=== PATIENT | male | born 1985 | race Caucasian/White ===

== ENCOUNTER 2022-01-18 07:17 | Emergency (ER) | payer SELFPAY ==
[2022-01-18] MEDS ORDERED: FLONASE 0.05% N16 GM (08:53)
[2022-01-18] MEDS ORDERED: DELSYM30 MG/5 ML PO (08:53)
[2022-01-18] MEDS ORDERED: SUDAFED 60 MG T60 MG PO (08:53)
== END 2022-01-18 08:59 | disposition home or self-care (01) ==
LOC: ER1 07:17
DX: R05.9 Cough, unspecified (principal); H61.22 Impacted cerumen, left ear; I10 Essential (primary) hypertension; F17.210 Nicotine dependence, cigarettes, uncomplicated; Z88.0 Allergy status to penicillin; Z20.822 Contact with and (suspected) exposure to COVID-19
CPT/HCPCS: 0240U; 99283

== ENCOUNTER 2022-01-21 21:09 | Emergency (ER) | payer SELFPAY ==
[~2022-01-21 21:09] MED LIST: DELSYM30 MG/5 ML PO; FLONASE 0.05% N16 GM; SUDAFED 60 MG T60 MG PO
== END 2022-01-22 00:42 | disposition home or self-care (01) ==
LOC: ER1 21:09
DX: J40 Bronchitis, not specified as acute or chronic (principal); F17.210 Nicotine dependence, cigarettes, uncomplicated; Z88.0 Allergy status to penicillin; Z20.822 Contact with and (suspected) exposure to COVID-19
CPT/HCPCS: 71045; 94664; 99284; U0002